=== PATIENT | male | born 1990 | race Caucasian/White ===

== ENCOUNTER 2017-10-23 07:38 | Outpatient (CLI) | payer OTHER ==
--- NOTE | 2017-10-23 20:55 | MRI Report ---
EXAM: LEFT SHOULDER MRI WITHOUT CONTRAST EXAM DATE: 10/23/2017 08:31 AM. CLINICAL HISTORY: Left shoulder instability. Dislocated left shoulder skiing on 09/25/2017. Clinical concern for a labral tear. COMPARISON: None. TECHNIQUE: Multiplanar, multisequence T1-weighted and fluid-sensitive sequences of the shoulder witho ut contrast. Other: None. FINDINGS: Acromioclavicular Region: The acromion is type II. The acromioclavicular joint is unremarkable. The c oracoacromial and coracoclavicular ligaments are intact. A minimal amount of fluid is in the subacrom ial/subdeltoid bursa. Glenohumeral Region: No subluxation. No effusion or loose bodies. The articular cartilage is unremark able. The glenohumeral ligaments and joint capsule are unremarkable. Bone Marrow: The patient has an acute or subacute Hill-Sachs deformity with marrow edema in the humer al head. Labrum: The anterior-inferior labrum is absent from its normal position and appears to be completely torn and displaced anteroinferior to the labrum (series 401, images 13 through 14. It may still be at tached to the periosteum. A flap fragment inferiorly is also seen on series 501, image 11). Musculature/Rotator Cuff: The subscapularis, supraspinatus, infraspinatus, and teres minor tendons ar e intact. No edema or fatty atrophy. Biceps Tendon: The long head of the biceps tendon and biceps sergio are intact. Other: The subcutaneous tissues are unremarkable. IMPRESSION: 1. Minimal subacromial/subdeltoid bursitis. 2. Acute or subacute Hill-Sachs deformity. 3. Tear of the anterior-inferior and inferior labrum. [facility] MUSCULOSKELETAL RADIOLOGY SECTION Referring Provider Line: [phone] SITE ID: [id number]
== END 2017-10-23 07:39 | disposition home or self-care (01) ==
LOC: DI 07:38
PROVIDERS: ATTEND General Practice
DX: S42.292D Other displaced fracture of upper end of left humerus, subsequent encounter for fracture with routine healing (principal); M75.52 Bursitis of left shoulder; S43.492A Other sprain of left shoulder joint, initial encounter